=== PATIENT | male | born 1975 | race Caucasian/White ===

== ENCOUNTER → 2024-07-27 12:00 | Outpatient (REF) | payer BC, SELFPAY | LOC: DHSLP 12:00 | PROVIDERS: ATTENDING PHYSICIAN Family Medicine | DX: G47.33 Obstructive sleep apnea (adult) (pediatric) (principal); R06.83 Snoring; E66.9 Obesity, unspecified; I10 Essential (primary) hypertension | CPT/HCPCS: 95800 ==

== ENCOUNTER → 2025-03-31 08:26 | Outpatient (REF) | payer BC, SELFPAY | LOC: PAVMRI 08:26 | PROVIDERS: ATTENDING PHYSICIAN Orthopaedic Surgery; FAMILY PHYSICIAN Family Medicine | DX: M19.011 Primary osteoarthritis, right shoulder (principal) | CPT/HCPCS: 73221 ==